=== PATIENT | male | born 1970 | race Caucasian/White ===

== ENCOUNTER 2025-08-31 12:02 | Outpatient (CLI) | payer OTHER, SELFPAY ==
--- NOTE | 2025-08-31 12:08 | XR_ITS ---
FINAL REPORT TECHNIQUE: Left ankle 4 views CLINICAL HISTORY: .pain -- no recent inj-- fx 1992 COMPARISON: None FINDINGS: AP, two oblique, and lateral views of the left ankle were obtained. There is no fracture or dislocation. There is degenerative joint disease present, along with calcification adjacent to the lateral malleolus, likely chronic. Diffuse soft tissue swelling is identified. IMPRESSION: No acute osseous abnormality of the left ankle. Degenerative joint disease with calcification adjacent to the lateral malleolus, likely chronic. Reviewed, Interpreted and Dictated by Leonor Castillo MD Transcribed by Kerline Calixto Authenticated and [facility]
--- NOTE | 2025-08-31 12:08 | XR_ITS ---
FINAL REPORT TECHNIQUE: 3 views right ankle CLINICAL HISTORY: ARTHRITIS-- pain COMPARISON: None FINDINGS: AP, oblique, and lateral views of the right ankle were obtained. There is no fracture or dislocation. The ankle mortise is intact. Degenerative joint disease is present, with diffuse soft tissue swelling. IMPRESSION: No acute osseous abnormality of the right ankle. Degenerative joint disease, with diffuse soft tissue swelling. Reviewed, Interpreted and Dictated by Leonor Castillo MD Transcribed by Kerline Calixto Authenticated and [facility]
== END 2025-08-31 23:59 | disposition home or self-care (01) ==
LOC: RAD 12:05
PROVIDERS: Visit Provider Chiropractor
DX: M19.072 Primary osteoarthritis, left ankle and foot (principal); M19.071 Primary osteoarthritis, right ankle and foot; M79.89 Other specified soft tissue disorders; R93.6 Abnormal findings on diagnostic imaging of limbs
CPT/HCPCS: 73610